=== PATIENT | female | born 1965 | race Two or more races ===

== ENCOUNTER 2019-11-06 18:59 | Emergency (ER) | payer BC, OTHER ==
[2019-11-06] MEDS ORDERED: HYDROmorphone 1 MG/ML Syringe IVPUSH STA (19:38)
[2019-11-06] MEDS ORDERED: Ondansetron 4 MG/2 ML SDV IVPUSH ONE (19:38)
[2019-11-06] MEDS ORDERED: Alum Hydrox/Mag Hydrox/Simeth 30 ML, Lidocaine 2% 15 ML PO STA ×2 (19:39)
[2019-11-06] MEDS ORDERED: Famotidine 20 MG/2 ML SDV IVPUSH STA (19:39)
--- NOTE | 2019-11-06 19:43 | EDM.PDOC ---
ED HPI GENERAL MEDICAL PROBLEM - General Chief Complaint: Gastrointestinal Problem Stated Complaint: UPPER ABDOMINAL PAIN THAT GOES INTO BACK Time Seen by Provider: 11/06/19 19:16 Source of Information: Reports: Patient, Family () History Limitations: Reports: No Limitations - History of Present Illness INITIAL COMMENTS - FREE TEXT/NARRATIVE: Mrs. Eason is a very pleasant 54-year-old woman with a past medical history significant for gastritis, diagnosed by EGD on 05/08/2016, who now presents the ED stating that she has has been experiencing episodic, progressively worsening epigastric pain that radiates through to her back for the past 3 months. She indicates her central mid back and right infrascapular area as the site of the radiated pain. She is unable to describe its character. No modifiers have been found, including food, although she states that Carafate helps. No associated nausea, vomiting, constipation, diarrhea, fever, or urinary symptoms. The patient states that she saw her PCP about this about 1 month ago. She was told to increase her Dexilant from once a day to twice a day, which she states that she did for about a week, which helped, however, she states that she has now been off the Dexilant for about a 3 weeks due to lack of insurance coverage. She was then seen at an ED in [place] on 10/29/2019. She states that they performed an ECG and blood work, all of which was unremarkable. They felt that she might have an ulcer, and recommended that she follow-up with her PCP to arrange for an EGD. She states that she then followed up with her PCP this past 10/31/2019, where she was referred to a Correspondence Coordinator, whom she saw today. She is scheduled for an EGD this coming 11/12/2019. An ultrasound of the right upper quadrant was also scheduled for 11/10/2019, however, the patient called her PCP back, telling her that she could not wait, therefore an ultrasound of the right upper quadrant is now scheduled for tomorrow morning, in [place]. The patient now presents to the ED stating that she does not feel that she can wait until tomorrow morning, that she would like some relief of her symptoms now. Here in the ED, the patient is found to be hemodynamically stable, afebrile, saturating 100% on room air. Other than her epigastric pain that radiates through to her back, the patient denies recent fever, chills, sore throat, ear pain, nasal or sinus congestion, cough, dyspnea, chest pain, palpitations, nausea, vomiting, constipation, diarrhea, urinary symptoms, recent weight gain or weight loss, recent bloody bowel movements or black bowel movements, recent joint aches, headaches, or rashes. She states that she last ate around 16:00 noon. The patient's PCP is Dr. Yuly Allison, in [place]. Her Correspondence Coordinator is Dr. Antelmo Givens, in [place]. Lower Abdomen Pain Score (Numeric/FACES): 10 - Related Data Allergies Allergy/AdvReac Type Severity Reaction Status Date / Time acetaminophen [From Vicodin] Allergy Hives Verified 05/03/16 11:06 [employer] hydrocodone [From Vicodin] Allergy Hives Verified 05/03/16 11:06 [employer] morphine Allergy Hallucinati Verified 05/03/16 11:06 [employer] ons typhoid vaccine Allergy Anaphylactic Verified 05/03/16 11:06 [employer] Shock zolmitriptan [From Zomig] Allergy Hallucinati Verified 05/03/16 11:06 [employer] ons Home Meds: Home Meds Butalbit/Acetamin/Caff/Codeine [Iwovxq-Tzrwgzzyfmm-Jdki-Codein] 1 tab PO DAILY 05/03/16 [History] Cholecalciferol (Vitamin D3) [Vitamin D3] 2 tab PO DAILY 05/03/16 [History] Lisdexamfetamine Dimesylate [Vyvanse] 40 mg PO DAILY 05/03/16 [History] Topiramate [Topiramate ER] 150 mg PO DAILY 05/03/16 [History] Past Medical History HEENT History: Reports: Allergic Rhinitis Respiratory History: Reports: Asthma (PFT-confirmed) Gastrointestinal History: Reports: Gastritis (EGD-confirmed) Genitourinary History: Reports: Renal Calculus Neurological History: Reports: Migraines Endocrine/Metabolic History: Reports: Obesity/BMI 30+ Hematologic History: Reports: Anemia - Past Surgical History GI Surgical History: Reports: Colonoscopy (x 1), EGD (x 1) Female Surgical History: Reports: Endometrial Ablation, Tubal Ligation Musculoskeletal Surgical History: Reports: Other (See Below) (Left forearm tendon repair. 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 ED EXAM, GI/ABD - Physical Exam Exam: See Below Exam Limited By: No Limitations General Appearance: Alert, WD/WN, Mild Distress (appears uncomfortable) Eyes: Bilateral: Normal Appearance, EOMI Ears: Normal External Exam, Hearing Grossly Normal Nose: Normal Inspection Throat/Mouth: Normal Inspection, Normal Lips, Normal Voice, No Airway Compromise Head: Atraumatic, Normocephalic Neck: Normal Inspection, Full Range of Motion Respiratory/Chest: No Respiratory Distress, Lungs Clear, Normal Breath Sounds, No Accessory Muscle Use Cardiovascular: Normal Peripheral Pulses, Regular Rate, Rhythm, No Gallop, No JVD, No Murmur, No Rub GI/Abdominal Exam: Normal Bowel Sounds, Soft, No Organomegaly, No Distention, No Abnormal Bruit, No Mass, Tender (Primarily epigastrium, with minimal tenderness in the right upper quadrant, and no tenderness elsewhere) (Female) Exam: Deferred Rectal (Female) Exam: Deferred Back Exam: Normal Inspection, Full Range of Motion. No: CVA Tenderness (L), CVA Tenderness (R) Extremities: Normal Inspection, Normal Range of Motion, No Pedal Edema, Normal Capillary Refill Neurological: Alert, Oriented, Normal Cognition, No Motor/Sensory Deficits Psychiatric: Normal Affect Skin Exam: Warm, Dry, Intact, Normal Color, No Rash Course - Vital Signs Last Recorded V/S: Last Vital Signs Temp 36.3 C 11/06/19 19:16 Pulse 82 11/06/19 19:16 Resp 18 11/06/19 19:16 BP 135/55 L 11/06/19 19:16 Pulse Ox 100 11/06/19 19:16 - Orders/Labs/Meds Orders: Active Orders 24 hr Category Date Time Status Sodium Chloride 0.9% [Normal Saline] 1,000 ml Med 11/06/19 19:45 Active IV ASDIRECTED Sodium Chloride 0.9% [Saline Flush] Med 11/06/19 20:09 Active 10 ml FLUSH ONETIME PRN Medication Orders Sodium Chloride (Normal Saline) 1,000 mls @ 150 mls/hr IV ASDIRECTED RACHELLE Last Admin: 11/06/19 20:02 Dose: 150 mls/hr Documented by: EMBER Sodium Chloride (Saline Flush) 10 ml FLUSH ONETIME PRN PRN Reason: Keep Vein Open Last Admin: 11/06/19 20:14 Dose: 10 ml Documented by: EMBRE Labs: Laboratory Tests 11/06/19 11/06/19 Range/Units 19:45 19:45 WBC 9.68 (3.98-10.04) K/mm3 RBC 4.60 (3.98-5.22) M/mm3 Hgb 13.2 (11.2-15.7) gm/dl Hct 41.7 (34.1-44.9) % MCV 90.7 (79.4-94.8) fl MCH 28.7 (25.6-32.2) pg MCHC 31.7 L (32.2-35.5) g/dl RDW Std Deviation 40.5 (36.4-46.3) fL Plt Count 227 (182-369) K/mm3 MPV 10.8 (9.4-12.3) fl Neutrophils % (Manual) 73 H (40-60) % Band Neutrophils % 0 (0-10) % Lymphocytes % (Manual) 17 L (20-40) % Atypical Lymphs % 0 % Monocytes % (Manual) 10 (2-10) % Eosinophils % (Manual) 0 L (0.7-5.8) % Basophils % (Manual) 0 L (0.1-1.2) Platelet Estimate Adequate Polychromasia 2+ moderate Anisocytosis 2+ moderate RBC Morph Comment Abnormal Sodium 141 (136-145) mEq/L Potassium 3.6 (3.5-5.1) mEq/L Chloride 106 (98-107) mEq/L Carbon Dioxide 30 (21-32) mEq/L Anion Gap 8.6 (5-15) BUN 14 (7-18) mg/dL Creatinine 0.8 (0.55-1.02) mg/dL Est Cr Clr Drug Dosing 76.36 mL/min Estimated GFR (MDRD) > 60 (>60) mL/min BUN/Creatinine Ratio 17.5 (14-18) Glucose 94 (74-106) mg/dL Calcium 9.2 (8.5-10.1) mg/dL Total Bilirubin 0.5 (0.2-1.0) mg/dL AST 316 H (15-37) U/L ALT 178 H (14-59) U/L Alkaline Phosphatase 151 H (46-116) U/L Total Protein 7.9 (6.4-8.2) g/dl Albumin 3.6 (3.4-5.0) g/dl Globulin 4.3 gm/dL Albumin/Globulin Ratio 0.8 L (1-2) Lipase 142 (73-393) U/L Meds: Medications Generic Name Dose Route Start Last Admin Trade Name Freq PRN Reason Stop Dose Admin Sodium Chloride 1,000 mls @ 150 mls/hr 11/06/19 19:45 11/06/19 20:02 Normal Saline IV 150 mls/hr ASDIRECTED RACHELLE Administration Sodium Chloride 10 ml 11/06/19 20:09 11/06/19 20:14 Saline Flush FLUSH 10 ml ONETIME PRN Administration Keep Vein Open Discontinued Medications Generic Name Dose Route Start Last Admin Trade Name Freq PRN Reason Stop Dose Admin Al Hydroxide/Mg Hydroxide 30 0 ml 11/06/19 19:39 11/06/19 20:02 ml/ Lidocaine HCl 15 ml PO 11/06/19 19:40 45 ml ONETIME STA Administration Diatrizoate Meglum/Diatrizoate Sod 40 ml 11/06/19 20:09 11/06/19 21:23 Gastrografin 37% PO 11/06/19 20:10 40 ml ONETIME ONE Administration Famotidine 40 mg 11/06/19 19:39 11/06/19 20:06 Pepcid IVPUSH 11/06/19 19:40 40 mg ONETIME STA Administration Hydromorphone HCl 0.5 mg 11/06/19 19:38 11/06/19 20:12 Dilaudid IVPUSH 11/06/19 19:39 0.5 mg ONETIME STA Administration Iopamidol 100 ml 11/06/19 20:09 11/06/19 21:24 Isovue-300 (61%) IVPUSH 11/06/19 20:10 100 ml ONETIME ONE Administration Ondansetron HCl 4 mg 11/06/19 19:38 11/06/19 20:05 Zofran IVPUSH 11/06/19 19:39 4 mg ONETIME ONE Administration - Re-Assessments/Exams Free Text/Narrative Re-Assessment/Exam: 11/06/19 19:43 As above, the patient has been experiencing progressively worsening epigastric pain that radiates through to her back over the past 3 months. She has an ultrasound scheduled for tomorrow morning, and I believe she was hoping that we could perform it here, however, she ate just 3 hours ago. On examination, she is tender in the epigastrium, but very little tenderness in the right upper quadrant, and no tenderness whatsoever elsewhere. For tonkelsey's purposes, I have ordered a work-up that includes blood work and a CT scan of her abdomen and pelvis with oral and IV contrast. While a CT scan cannot diagnose gastritis, and is not very good at diagnosing GERD or acute cholecystitis, it is good at ruling out other potential etiologies, therefore if negative, then future work- up can focus on those elements. In the meantime, the patient will be given IV fluid, a GI cocktail, IV Dilaudid, IV famotidine, and IV Zofran. 11/06/19 20:21 The patient's CBC is unremarkable. Her CMP is remarkable for an AST/ALT elevated at 316/178, respectively, and an alkaline phosphatase elevated at 151. Her TBil is within normal limits at 0.5, with the remainder of her CMP being unremarkable. Her lipase is within normal limits at 142. 11/06/19 22:17 CT of the abdomen and pelvis with oral and IV contrast was read by Dr. Pina as: 1. Findings as noted above. Nothing acute is appreciated on CT study of the abdomen and pelvis. 11/06/19 22:49 Test results discussed with the patient and her . As above, today's work-up is grossly unremarkable, however, it does rule out pancreatitis as a cause of her pain. Her pain could still be due to cholecystitis versus gastritis/GERD/PUD. At this point, I am unable to determine which is more likely; she has some tenderness to the right upper quadrant, although more to the epigastrium, and her pain does radiate through to her right subscapular a juana, although also to the center of her back. Her pain, however, is not associated with food, which would be unusual for cholecystitis. Her transaminases and alk phos are elevated, but her TBil is not, therefore these elevations are not consistent with a common bile duct obstruction. She has pain in the epigastrium that radiates through to the center of her back, and she has had relief in the past with Dexilant and Carafate, which is consistent with gastritis/GERD/PUD, however, she is also tender in the epigastrium, which is not consistent with any of those. Since the patient had oral contrast here in the ED, she is not a candidate for an ultrasound at this time. My plan is to discharge her home with the recommendation that she remain n.p.o. after midnight, then go to her scheduled ultrasound in the morning. I am recommending that she start taking an [id number] PPI, since she says that has helped in the past, while H2 blockers have not. I recommended that she talk to her PCP about adding a HIDA scan to her work-up, and, of course, she still needs to undergo the EGD on 11/12/2019. The patient is agreeable. Departure - Departure Time of Disposition: 22:53 Disposition: Home, Self-Care 01 Condition: Good Clinical Impression: Epigastric abdominal pain of unknown etiology, Elevated LFTs - Discharge Information *PRESCRIPTION DRUG MONITORING PROGRAM REVIEWED*: Not Applicable *COPY OF PRESCRIPTION DRUG MONITORING REPORT IN PATIENT JOSE: Not Applicable Instructions: Abdominal Pain, Adult, [id number] Referrals: Yuly Allison NP [Primary Care Provider] - Antelmo Givens MD [Physician] - Forms: ED Department Discharge Additional Instructions: You were seen in the emergency room for 3 months of progressively worsening upper central abdominal pain. Work-up in the ER included blood work and a CT scan of your abdomen and pelvis with oral and IV contrast. Your blood work found your liver enzymes to be modestly elevated, but not your total bilirubin, a finding which is not consistent with a blocked common bile duct. The CT scan of your abdomen and pelvis did not find any significant abnormalities. The cause of your abdominal pain is not known. It could be due to cholecystitis (inflammation of your gallbladder) or to gastritis (inflammation of the lining of your stomach), GERD (acid reflux), or to an ulcer. We recommend the followin. Do not eat anything after midnight tonight. 2. Undergo the ultrasound of your upper right abdomen tomorrow, 11/07/2019, as previously scheduled. 3. Start taking an [id number] proton pump inhibitor, such as Nexium or Prilosec, as directed on the label. 4. Avoid fatty/greasy/oily foods as much as possible. 5. Call your PCP, Dr. Allison, to see if she can add a HIDA scan to your evaluation. 6. Undergo the EGD (scope of your stomach) at your previously scheduled appointment on 11/12/2019. If any other problems, please do not hesitate to return to the ER. Sepsis Event Note (ED) - Evaluation Sepsis Screening Result: No Definite Risk - Focused Exam Vital Signs: Vital Signs Temp Pulse Resp BP Pulse Ox 11/06/19 19:16 36.3 C 82 18 135/55 L 100 - My Orders Last 24 Hours: My Active Orders 11/06/19 19:45 Sodium Chloride 0.9% [Normal Saline] 1,000 ml IV ASDIRECTED 11/06/19 20:09 Sodium Chloride 0.9% [Saline Flush] 10 ml FLUSH ONETIME PRN - Assessment/Plan Last 24 Hours: My Active Orders 11/06/19 19:45 Sodium Chloride 0.9% [Normal Saline] 1,000 ml IV ASDIRECTED 11/06/19 20:09 Sodium Chloride 0.9% [Saline Flush] 10 ml FLUSH ONETIME PRN
[2019-11-06] MEDS ORDERED: Sodium Chloride 0.9% 1,000 ML IV SCH (19:45)
[2019-11-06] MEDS ORDERED: Iopamidol 612 MG/ML 100 ML Bottle IVPUSH ONE (20:09)
[2019-11-06] MEDS ORDERED: Diatrizoate Meglumine/Diatrizoate Sodium 37% 120 ML Bottle PO ONE (20:09)
[2019-11-06] MEDS ORDERED: Sodium Chloride 0.9% 10 ML Syringe FLUSH PRN (20:09)
--- NOTE | 2019-11-06 21:53 | CT ---
CT abdomen and pelvis Technique: Multiple axial sections were obtained from above the dome of the diaphragm inferiorly through the pubic symphysis. Intravenous contrast was utilized. Oral contrast is seen which remains within the stomach. Delayed images were obtained through the bladder. Findings: Visualized lung bases show nothing acute. Liver contains no focal abnormality. Spleen appears within normal limits. Adrenal glands show no nodule. Gallbladder contains no calcified gallstones. Kidneys show symmetric contrast enhancement without hydronephrosis or mass. Questionable nonobstructing stone within the lower left kidney is present. Pancreas appears within normal limits. Aorta shows no aneurysm. No retroperitoneal adenopathy or mesenteric abnormalities are seen. Appendix is seen which is normal in size. No pelvic mass or adenopathy is seen. No free fluid or inflammatory change is seen. Bone window settings were reviewed which shows degenerative change at L5-S1 with vacuum disc phenomena within the disc and within the apophyseal joints. Mild spondylolisthesis and disc space narrowing is noted at this level. Delayed images shows contrast within the bladder. Impression: 1. Findings as noted above. Nothing acute is appreciated on CT study of the abdomen and pelvis. Diagnostic code #2 Study was dictated in MDT
[2019-11-06 23:24] VITALS: BP 120/73; PULSE 63
== END 2019-11-06 23:45 | disposition home or self-care (01) ==
LOC: JD.ED 18:59
DX: R10.13 Epigastric pain (principal); R79.89 Other specified abnormal findings of blood chemistry; J45.909 Unspecified asthma, uncomplicated; E66.9 Obesity, unspecified; G43.909 Migraine, unspecified, not intractable, without status migrainosus; Z68.32 Body mass index [BMI] 32.0-32.9, adult; Z88.6 Allergy status to analgesic agent; Z88.5 Allergy status to narcotic agent; Z88.8 Allergy status to other drugs, medicaments and biological substances; Z79.899 Other long term (current) drug therapy
CPT/HCPCS: 36415; 74177; 80053; 83690; 85007; 85027; 96374; 96375; 99284; A9270; J1170; J2405; J3490; J7030; Q9963; Q9967; 99283

== ENCOUNTER 2019-11-08 18:51 | Emergency (ER) | payer BC, OTHER ==
[2019-11-08] MEDS ORDERED: Ondansetron 4 MG/2 ML SDV IVPUSH ONE (19:21)
[2019-11-08] MEDS ORDERED: HYDROmorphone 1 MG/ML Syringe IVPUSH ONE (19:22)
--- NOTE | 2019-11-08 19:29 | EDM.PDOC ---
ED HPI GENERAL MEDICAL PROBLEM - General Chief Complaint: Abdominal Pain Stated Complaint: upper abdominal pain severe Time Seen by Provider: 11/08/19 19:03 Source of Information: Reports: Patient History Limitations: Reports: No Limitations - History of Present Illness INITIAL COMMENTS - FREE TEXT/NARRATIVE: This is a 54-year-old female. She has been having right upper quadrant and epigastric abdominal pain for several weeks now. She was here on the and had a CAT scan that did not show any stones in the gallbladder. At that same time she did have elevated liver enzymes though her bilirubin was not elevated. She continues to have episodic right upper quadrant pain that is severe and debilitating and her family doctor got an ultrasound on her yesterday in [facility] that showed cholelithiasis without cholecystitis. Doing okay today she had an egg a taco shell at 1030 this morning. She had some fluids about 2 to 3 hours ago but she has not eaten since that time. About 2 hours ago was when she had severe onset of right upper quadrant abdominal pain. She comes to this ER for evaluation. She does have nausea with that she does have vomiting. She has had no diarrhea. She denies any recent colds coughs fever chills shortness of breath. 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 States she does not have any medical problems other than migraines, remote history of anemia, gastritis back in 2016 and asthma that is not been a problem in the last few years. Epigastric Pain Score (Numeric/FACES): 10 - Related Data Allergies Allergy/AdvReac Type Severity Reaction Status Date / Time acetaminophen [From Vicodin] Allergy Severe Hives Verified 11/08/19 19:05 hydrocodone [From Vicodin] Allergy Severe Hives Verified 11/08/19 19:05 ketorolac [From Toradol] Allergy Severe Cannot Verified 11/08/19 19:05 Remember morphine Allergy Severe Hallucinati Verified 11/08/19 19:05 ons sumatriptan [From Imitrex] Allergy Severe Cannot Verified 11/08/19 19:05 Remember typhoid vaccine Allergy Severe Anaphylactic Verified 11/08/19 19:05 Shock zolmitriptan [From Zomig] Allergy Severe Hallucinati Verified 11/08/19 19:05 ons Home Meds: Home Meds Butalbit/Acetamin/Caff/Codeine [Fceuxn-Talyoialjuz-Rtdb-Codein] 1 tab PO DAILY 05/03/16 [History] Cholecalciferol (Vitamin D3) [Vitamin D3] 2 tab PO DAILY 05/03/16 [History] Lisdexamfetamine Dimesylate [Vyvanse] 40 mg PO DAILY 05/03/16 [History] Sucralfate [Carafate] 10 ml PO QID 11/07/19 [History] Acetaminophen/oxyCODONE [Percocet 325-5 MG] 1 each PO Q6H PRN #20 tab 11/08/19 [Rx] Dicyclomine [Bentyl] 20 mg PO Q6H PRN #20 tablet 11/08/19 [Rx] Ondansetron [Zofran] 4 mg PO Q6H PRN #20 tab 11/08/19 [Rx] Past Medical History HEENT History: Reports: Allergic Rhinitis Respiratory History: Reports: Asthma Gastrointestinal History: Reports: Gastritis Genitourinary History: Reports: Renal Calculus 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: Musculoskeletal History: Reports: None Neurological History: Reports: Migraines Endocrine/Metabolic History: Reports: Obesity/BMI 30+ Hematologic History: Reports: Anemia - Past Surgical History Head Surgeries/Procedures: Reports: None GI Surgical History: Reports: Colonoscopy, EGD Female Surgical History: Reports: Endometrial Ablation, Tubal Ligation Other Musculoskeletal Surgeries/Procedures:: hx foot surgery Social & Family History - Tobacco Use Smoking Status *Q: Never Smoker Second Hand Smoke Exposure: No - Caffeine Use Caffeine Use: Reports: None - Recreational Drug Use Recreational Drug Use: No - Living Situation & Occupation Living situation: Reports: , with Spouse 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 Denies: Diarrhea : Reports: No Symptoms Musculoskeletal: Reports: No Symptoms Skin: Reports: No Symptoms Neurological: Reports: No Symptoms Psychiatric: Reports: No Symptoms Hematologic/Lymphatic: Reports: No Symptoms ED EXAM, GI/ABD - Physical Exam Exam: See Below Exam Limited By: No Limitations General Appearance: Alert, WD/WN, Moderate Distress Eyes: Bilateral: Normal Appearance Ears: Normal External Exam, Normal Canal, Normal TMs Nose: Normal Inspection Throat/Mouth: Normal Inspection, Normal Lips, Normal Oropharynx, Normal Voice, No Airway Compromise Head: Normocephalic Neck: Supple Respiratory/Chest: No Respiratory Distress, Lungs Clear, Normal Breath Sounds Cardiovascular: Regular Rate, Rhythm, No Murmur GI/Abdominal Exam: Other (Right upper quadrant abdominal pain with a positive Cross's, it does not appear to be rigid or rebound at this time.) Back Exam: Full Range of Motion Extremities: Normal Inspection, Normal Range of Motion Neurological: Alert, Oriented Psychiatric: Anxious, Tearful Skin Exam: Warm, Dry Course - Orders/Labs/Meds Orders: Active Orders 24 hr Category Date Time Status Sodium Chloride 0.9% [Normal Saline] 1,000 ml Med 11/08/19 19:30 Active IV ASDIRECTED Medication Orders Sodium Chloride (Normal Saline) 1,000 mls @ 500 mls/hr IV ASDIRECTED RACHELLE Last Admin: 11/08/19 19:31 Dose: 500 mls/hr Documented by: EMBER Labs: Laboratory Tests 11/08/19 11/08/19 Range/Units 19:35 19:35 WBC 9.90 (3.98-10.04) K/mm3 RBC 4.39 (3.98-5.22) M/mm3 Hgb 12.6 (11.2-15.7) gm/dl Hct 39.8 (34.1-44.9) % MCV 90.7 (79.4-94.8) fl MCH 28.7 (25.6-32.2) pg MCHC 31.7 L (32.2-35.5) g/dl RDW Std Deviation 40.1 (36.4-46.3) fL Plt Count 216 (182-369) K/mm3 MPV 10.7 (9.4-12.3) fl Neut % (Auto) 75.5 H (34.0-71.1) % Lymph % (Auto) 15.7 L (19.3-51.7) % [place] % (Auto) 8.0 (4.7-12.5) % Eos % (Auto) 0.5 L (0.7-5.8) Baso % (Auto) 0.2 (0.1-1.2) % Neut # (Auto) 7.48 H (1.56-6.13) K/mm3 Lymph # (Auto) 1.55 (1.18-3.74) K/mm3 [place] # (Auto) 0.79 H (0.24-0.36) K/mm3 Eos # (Auto) 0.05 (0.04-0.36) K/mm3 Baso # (Auto) 0.02 (0.01-0.08) K/mm3 Sodium 141 (136-145) mEq/L Potassium 3.5 (3.5-5.1) mEq/L Chloride 105 (98-107) mEq/L Carbon Dioxide 27 (21-32) mEq/L Anion Gap 12.5 (5-15) BUN 11 (7-18) mg/dL Creatinine 0.8 (0.55-1.02) mg/dL Est Cr Clr Drug Dosing 76.36 mL/min Estimated GFR (MDRD) > 60 (>60) mL/min BUN/Creatinine Ratio 13.8 L (14-18) Glucose 167 H (74-106) mg/dL Calcium 9.1 (8.5-10.1) mg/dL Total Bilirubin 1.0 (0.2-1.0) mg/dL AST 372 H (15-37) U/L ALT 342 H (14-59) U/L Alkaline Phosphatase 178 H (46-116) U/L Total Protein 7.2 (6.4-8.2) g/dl Albumin 3.3 L (3.4-5.0) g/dl Globulin 3.9 gm/dL Albumin/Globulin Ratio 0.9 L (1-2) Lipase 97 (73-393) U/L Meds: Medications Generic Name Dose Route Start Last Admin Trade Name Freq PRN Reason Stop Dose Admin Sodium Chloride 1,000 mls @ 500 mls/hr 11/08/19 19:30 11/08/19 19:31 Normal Saline IV 500 mls/hr ASDIRECTED RACHELLE Administration Discontinued Medications Generic Name Dose Route Start Last Admin Trade Name Freq PRN Reason Stop Dose Admin Hydromorphone HCl 1 mg 11/08/19 19:22 11/08/19 19:34 Dilaudid IVPUSH 11/08/19 19:23 1 mg ONETIME ONE Administration Ondansetron HCl 4 mg 11/08/19 19:21 11/08/19 19:36 Zofran IVPUSH 11/08/19 19:22 4 mg ONETIME ONE Administration - Radiology Interpretation Free Text/Narrative:: Her sound of the gallbladder shows multiple gallstones within the gallbladder but the gallbladder wall is not thickened and the biliary duct is not dilated. - Re-Assessments/Exams Free Text/Narrative Re-Assessment/Exam: 11/08/19 19:[address] scan from done here at the hospital and it does not suggest any gallstones in the gallbladder at time. But I reviewed the ultrasound from the that was done in [place] that does show cholelithiasis but the common bile duct appeared to be normal. As the actual report on her phone and she showed it to me. 11/08/19 21:15 To the patient regarding her ultrasound reports and blood work. She is now pain-free and feeling much more comfortable. I did speak to Dr. Hidalgo who is willing to see the patient on Sunday morning in your clinic and schedule a time to get the gallbladder taken out this week. I relayed this message to the patient and she is grateful. In the meantime she needs to stay on a 0 fat diet. I will put her on some medicine for smooth muscle relaxers, pain meds and nausea medications. She does realize that if none of this seems to work at home when it flares up she needs to return to the ER. 11/08/19 21:30 The patient states that when she takes hydrocodone she gets a rash. I explained to her that oxycodone is a cousin to hydrocodone and so to take 1 pill and be careful and have some Benadryl at home if she seems to get a reaction from it and if she does not take any more Percocet. The patient states she understands. Departure - Departure Time of Disposition: 21:19 Disposition: Home, Self-Care 01 Condition: Fair Clinical Impression: Cholelithiasis without cholecystitis, Elevated liver enzymes, Right upper quadrant abdominal pain - Discharge Information *PRESCRIPTION DRUG MONITORING PROGRAM REVIEWED*: No *COPY OF PRESCRIPTION DRUG MONITORING REPORT IN PATIENT JOSE: No Prescriptions: Dicyclomine [Bentyl] 20 mg PO Q6H PRN #20 tablet PRN Reason: Pain Acetaminophen/oxyCODONE [Percocet 325-5 MG] 1 each PO Q6H PRN #20 tab PRN Reason: Pain Ondansetron [Zofran] 4 mg PO Q6H PRN #20 tab PRN Reason: Nausea Instructions: Cholelithiasis, Gallbladder Eating Plan Referrals: Yuly Allison NP [Primary Care Provider] - Gwen-Isi Lu MD [Physician] - Forms: ED Department Discharge Additional Instructions: Call Dr. Hidalgo's office Sunday and tell them that the ER doc spoke to Dr. Hidalgo and you need to be seen Sunday because Dr. Hidalgo is expecting you to come, in the meantime do not eat any fats in your diet, take the medicine as needed for nausea, if you feel like you are getting that pain again take a Bentyl as well as a Percocet to ease that pain up, if there is marked worsening of your symptoms or you develop a fever greater than 101 return to the ER immediately Sepsis Event Note (ED) - Evaluation Sepsis Screening Result: No Definite Risk - My Orders Last 24 Hours: My Active Orders 11/08/19 19:30 Sodium Chloride 0.9% [Normal Saline] 1,000 ml IV ASDIRECTED - Assessment/Plan Last 24 Hours: My Active Orders 11/08/19 19:30 Sodium Chloride 0.9% [Normal Saline] 1,000 ml IV ASDIRECTED
[2019-11-08] MEDS ORDERED: Sodium Chloride 0.9% 1,000 ML IV SCH (19:30)
--- NOTE | 2019-11-08 20:37 | US ---
Limited abdominal ultrasound: Multiple real-time images of the upper right abdomen were obtained. Comparison: Prior CT abdomen and pelvis exam of 11/06/19. Findings: Visualized portions of the pancreas shows no abnormality. Liver contains no focal abnormality. Multiple gallstones are seen within the gallbladder. No gallbladder wall thickening or biliary duct dilatation is seen. Right kidney shows no hydronephrosis. Some portions of the right kidney are not seen due to bowel gas. Right kidney has a length of approximately 9.5 cm. Inferior vena cava is patent. Portal vein shows hepatopedal flow. Impression: 1. Multiple gallstones within the gallbladder. No gallbladder wall thickening or biliary duct dilatation is seen. 2. Incompletely seen right kidney due to bowel gas. No discrete hydronephrosis is seen. 3. No additional abnormality is appreciated. Diagnostic code #3 Study was dictated in MDT
[2019-11-08 21:52] VITALS: BP 118/59; PULSE 58
== END 2019-11-08 21:40 | disposition home or self-care (01) ==
LOC: JD.ED 18:51
DX: K80.20 Calculus of gallbladder without cholecystitis without obstruction (principal); R74.8 Abnormal levels of other serum enzymes; E66.9 Obesity, unspecified; Z68.34 Body mass index [BMI] 34.0-34.9, adult; Z88.5 Allergy status to narcotic agent; Z88.6 Allergy status to analgesic agent; Z88.8 Allergy status to other drugs, medicaments and biological substances; Z88.7 Allergy status to serum and vaccine; Z79.899 Other long term (current) drug therapy
CPT/HCPCS: 36415; 76705; 80053; 83690; 85025; 96361; 96374; 96375; 99284; J1170; J2405; J7030